=== PATIENT | female | born 1995 | race Caucasian/White ===

== ENCOUNTER 2018-04-04 04:36 | Inpatient (IN) | payer OTHER ==
[~2018-04-04] VITALS: Ht 162.6 cm; Wt 73.0 kg
[2018-04-04] MEDS ORDERED: PRENATAL TABLE1 EAC1 PO (05:45)
== END 2018-04-06 14:26 | disposition home or self-care (01) | DRG 775 ==
LOC: OB/GYN 04:36 → LDR 04:36 → OB/GYN 17:48 → MEDI 19:43 → OB/GYN 19:44
PROC: 10E0XZZ Delivery of Products of Conception, External Approach (ICD-10-PCS; principal; 2018-04-04)
PROC: 10907ZC Drainage of Amniotic Fluid, Therapeutic from Products of Conception, Via Natural or Artificial Opening (ICD-10-PCS; 2018-04-04)
PROC: 3E033VJ Introduction of Other Hormone into Peripheral Vein, Percutaneous Approach (ICD-10-PCS; 2018-04-04)
PROC: 4A1HXCZ Monitoring of Products of Conception, Cardiac Rate, External Approach (ICD-10-PCS; 2018-04-04)
DX: O80 Encounter for full-term uncomplicated delivery (principal); Z3A.38 38 weeks gestation of pregnancy; Z37.0 Single live birth